=== PATIENT | male | born 1995 | race African-American/Black ===

== ENCOUNTER 2018-04-17 18:27 | Emergency (ER) | payer OTHER ==
[~2018-04-17] VITALS: Ht 185.4 cm; Wt 72.6 kg
[2018-04-17 18:47] LABS: ABSOLUTE NEUTROPHILS 2.6 thou/uL (1.4-8.2); BASOPHILS 0.8 % (0.0-2.0); EOSINOPHILS 1.1 % (0.0-3.0); HEMATOCRIT 45.3 % (42.0-52.0); HEMOGLOBIN 14.8 gm/dL (14.0-18.0); LYMPHOCYTES 33.1 % (24.0-44.0); MCH 24.9 pg (26.0-34.0); MCHC 32.7 g/dL (28.0-37.0); MCV 76.1 fL (80.0-100.0); MONOCYTES 7.7 % (1.0-8.0); PLATELET COUNT 271 thou/uL (150-400); POLYS 57.3 % (36.0-66.0); RBC 5.95 mil/uL (4.50-6.00); RDW 13.8 % (10.5-14.5); WBC 4.5 thou/uL (4.0-11.0)
[2018-04-17 18:56] LABS: CALCIUM 9.1 mg/dL (8.5-10.1); POTASSIUM 3.6 mmol/L (3.5-5.1)
[2018-04-17] MEDS ORDERED: NORCO 5-325 TA1 EACH PO (20:51)
[2018-04-17] MEDS ORDERED: SENNA-DOCUSATE1 EACH PO (20:51)
[2018-04-17] MEDS ORDERED: IBUPROFEN 600600 M1 PO (20:51)
[2018-04-17] MEDS ORDERED: FLEXERIL PO (20:51)
[2018-04-17 21:15] VITALS: BP 116/84
== END 2018-04-17 21:30 | disposition home or self-care (01) ==
LOC: ER 18:27
PROVIDERS: Emergency Medicine
DX: S42.032A Displaced fracture of lateral end of left clavicle, initial encounter for closed fracture (principal); T14.8XXA Other injury of unspecified body region, initial encounter; S80.812A Abrasion, left lower leg, initial encounter; S80.212A Abrasion, left knee, initial encounter; S50.312A Abrasion of left elbow, initial encounter; S90.512A Abrasion, left ankle, initial encounter; V89.2XXA Person injured in unspecified motor-vehicle accident, traffic, initial encounter; Y93.89 Activity, other specified; Y92.89 Other specified places as the place of occurrence of the external cause; Y99.8 Other external cause status

== ENCOUNTER 2018-04-26 16:21 | Emergency (ER) | payer OTHER ==
[~2018-04-26] VITALS: Ht 185.4 cm; Wt 72.6 kg
[~2018-04-26 16:21] MED LIST: FLEXERIL PO; IBUPROFEN 600600 M1 PO; NORCO 5-325 TA1 EACH PO; SENNA-DOCUSATE1 EACH PO
[2018-04-26] MEDS ORDERED: KEFLEX500 M1 PO (18:27)
[2018-04-26] MEDS ORDERED: TRAMADOL 50 MG50 MG PO (18:27)
[2018-04-26 18:37] VITALS: BP 122/77
== END 2018-04-26 18:58 | disposition home or self-care (01) ==
LOC: ER 16:21
DX: S81.011D Laceration without foreign body, right knee, subsequent encounter (principal); V29.9XXD Motorcycle rider (driver) (passenger) injured in unspecified traffic accident, subsequent encounter

== ENCOUNTER 2019-07-09 09:33 | Emergency (ER) | payer OTHER ==
[~2019-07-09] VITALS: Ht 185.4 cm; Wt 77.1 kg
[~2019-07-09 09:33] MED LIST changes: +KEFLEX500 M1 PO; +TRAMADOL 50 MG50 MG PO
[2019-07-09 09:46] LABS: URINE BILIRUBIN NEGATIVE (Negative); URINE BLOOD 1+ (Negative); URINE CLARITY CLEAR; URINE COLOR YELLOW; URINE GLUCOSE-RANDOM* NEGATIVE (Negative); URINE KETONES NEGATIVE (Negative); URINE LEUKOCYTES-REFLEX NEGATIVE (Negative); URINE NITRITE-REFLEX NEGATIVE (Negative); URINE PROTEIN (DIPSTICK) NEGATIVE (Negative); URINE UROBILINOGEN 0.2 E.U./dl (0.2-1.0)
[2019-07-09 09:56] LABS: BACTERIA-REFLEX None Seen /HPF (None Seen); CASTS None Seen /LPF (None Seen); CRYSTALS None Seen /LPF (None Seen); SQUAMOUS None Seen /LPF (0-3); URINE RBC 0-2 Rare /HPF (0-2); URINE WBC-REFLEX None Seen /HPF (0-5)
[2019-07-09 10:30] LABS: BASOPHILS 0.8 % (0.0-2.0); EOSINOPHILS 1.3 % (0.0-3.0); HEMATOCRIT 47.5 % (42.0-52.0); HEMOGLOBIN 15.2 gm/dL (14.0-18.0); LYMPHOCYTES 28.6 % (24.0-44.0); MCH 24.4 pg (26.0-34.0); MCHC 31.9 g/dL (28.0-37.0); MCV 76.5 fL (80.0-100.0); MONOCYTES 10.6 % (1.0-8.0); PLATELET COUNT 342 thou/uL (150-400); POLYS 58.7 % (36.0-66.0); RDW 14.7 % (10.5-14.5); WBC 3.4 thou/uL (4.0-11.0)
[2019-07-09 10:37] LABS: CALCIUM 9.2 mg/dL (8.5-10.1); CREATININE 1.1 mg/dL (0.7-1.3); POTASSIUM 4.7 mmol/L (3.5-5.1)
[2019-07-09 10:43] LABS: ALBUMIN 4.1 g/dL (3.4-5.0); TOTAL BILIRUBIN 0.4 mg/dL (<0.1-1.0); TOTAL PROTEIN 7.3 g/dL (6.4-8.2)
[2019-07-09 10:54] VITALS: BP 125/78
== END 2019-07-09 11:17 | disposition home or self-care (01) ==
LOC: ER 09:33
PROVIDERS: Emergency Medicine
DX: R31.9 Hematuria, unspecified (principal)

== ENCOUNTER 2019-07-11 21:38 | Emergency (ER) | payer OTHER ==
[~2019-07-11] VITALS: Ht 177.8 cm; Wt 77.1 kg
[2019-07-11] MEDS ORDERED: NORCO 10-325 T1 EACH PO (22:00)
[2019-07-11] MEDS ORDERED: PENICILLIN VK500 M1 PO (22:00)
[2019-07-11 22:19] VITALS: BP 108/77
== END 2019-07-11 22:20 | disposition home or self-care (01) ==
LOC: ER 21:38
DX: K02.9 Dental caries, unspecified (principal); R51 Headache